=== PATIENT | female | born 1985 | race American Indian/Alaskan Native ===

== ENCOUNTER 2016-12-20 06:37 | Emergency (ER) | payer SELFPAY ==
[2016-12-20 07:49] VITALS: BP 128/83
[2016-12-20 08:18] LABS: Basophils % (Auto) 0.7 % (0.0-1.8); Hematocrit 39.6 % (30.3-42.9); Hemoglobin 12.9 gm/dl (10.1-14.3); Mean Corpuscular HGB Conc 33 % (30-34); Mean Corpuscular Hemoglobin 29 pg (28-32); Mean Corpuscular Volume 88 fl (79-97); Platelet Count 317 K/mm3 (140-440); Red Blood Count 4.53 M/mm3 (3.65-5.03); Red Cell Distribution Width 13.3 % (13.2-15.2); White Blood Count 4.8 K/mm3 (4.5-11.0)
[2016-12-20 08:28] LABS: Anion Gap 17 mmol/L; Blood Urea Nitrogen 12 mg/dL (7-17); Calcium 8.8 mg/dL (8.4-10.2); Carbon Dioxide 26 mmol/L (22-30); Chloride 99.8 mmol/L (98-107); Glucose 193 mg/dL (65-100); Potassium 3.6 mmol/L (3.6-5.0); Sodium 139 mmol/L (137-145)
[2016-12-20 08:31] LABS: Creatine Kinase 121 units/L (30-135); Creatine Kinase MB < 1.0 ng/mL (0.0-4.0)
--- NOTE | 2016-12-21 09:23 | ED Elopement Review ---
ED Pt Elopement review - Results review Lab results: Laboratory Tests 12/20/16 12/20/16 12/20/16 07:52 07:53 07:53 WBC 4.8 RBC 4.53 Hgb 12.9 Hct 39.6 MCV 88 MCH 29 MCHC 33 RDW 13.3 Plt Count 317 Lymph % (Auto) 38.0 H [place] % (Auto) 8.3 H Eos % (Auto) 1.0 Baso % (Auto) 0.7 Lymph # 1.8 [place] # 0.4 Eos # 0.0 Baso # 0.0 Seg Neutrophils % 52.0 Seg Neutrophils # 2.5 Sodium 139 Potassium 3.6 Chloride 99.8 Carbon Dioxide 26 Anion Gap 17 BUN 12 Creatinine 0.8 Estimated GFR > 60 BUN/Creatinine Ratio 15.00 Glucose 193 H Calcium 8.8 Total Creatine Kinase 121 CK-MB (CK-2) < 1.0 Troponin T < 0.010 - Call Back decision Pt Call Back Decision: Pt to F/U with PMD (Follow up with PCP if continued chest pain - if worsening return to ED)
== END 2016-12-20 08:00 | disposition left against medical advice (07) ==
LOC: ED 06:37
DX: R07.9 Chest pain, unspecified (principal); Z53.21 Procedure and treatment not carried out due to patient leaving prior to being seen by health care provider
CPT/HCPCS: 36415; 80048; 82550; 82553; 84484; 85025; 93005; 93010